=== PATIENT | male | born 2000 | race Two or more races ===

== ENCOUNTER 2025-10-03 17:56 | Emergency (ER) | payer SELFPAY ==
[~2025-10-03] VITALS: Ht 190.5 cm; Wt 97.0 kg
[2025-10-03 17:58] VITALS: BP 129/82; PULSE 67; RESP 18; TEMP 97.7; O2SAT 97
== END 2025-10-03 19:53 | disposition left against medical advice (07) ==
LOC: ER 17:56
DX: S51.812A Laceration without foreign body of left forearm, initial encounter (principal); Z53.21 Procedure and treatment not carried out due to patient leaving prior to being seen by health care provider; X58.XXXA Exposure to other specified factors, initial encounter; Y93.89 Activity, other specified; Y92.89 Other specified places as the place of occurrence of the external cause; Y99.8 Other external cause status